=== PATIENT | male | born 1945 | race Asian ===

== ENCOUNTER 2017-03-24 15:58 | Emergency (ER) | payer SELFPAY ==
[~2017-03-24] VITALS: Ht 167.6 cm; Wt 67.1 kg
[2017-03-24 16:02] VITALS: BP_SYST 138
--- NOTE | 2017-03-24 16:10 | NUR ---
Patient to [facility] for evaluation. Report received from Raji MILLER
--- NOTE | 2017-03-24 16:12 | NUR ---
Pt bib [facility] for ok to book.. Pt h/o HTN otherwise pt is poor historian. Pt has no acute distress noted.
--- NOTE | 2017-03-24 16:15 | NUR ---
[facility] examining patient.
[2017-03-24 16:20] VITALS: BP_SYST 138
--- NOTE | 2017-03-24 16:47 | NUR ---
Patient given written and verbal discharge instructions and verbalizes understanding. ER MD discussed with patient the results and treatment provided. Patient in stable condition. ID arm band removed. NO Rx of given. Patient educated on pain management and to follow up with PMD. Pain Scale 0. Opportunity for questions provided and answered.
== END 2017-03-24 16:47 ==
LOC: SED 15:58
DX: Z02.89 Encounter for other administrative examinations (principal); E11.9 Type 2 diabetes mellitus without complications; I10 Essential (primary) hypertension; Z98.890 Other specified postprocedural states
CPT/HCPCS: 99283